=== PATIENT | female | born 1950 | race Caucasian/White ===

== ENCOUNTER 2020-08-28 19:50 | Inpatient (IN) | payer OTHER, SELFPAY ==
[~2020-08-28] VITALS: Ht 139.7 cm; Wt 44.5 kg
--- NOTE | 2020-08-28 19:54 | NUR ---
Placed in room 6 . Placed on clinical research monitor, blood pressure machine and pulse oximeter. To gown for exam. Side rails up. Report given to ZOË TOMLINSON.
[2020-08-28 19:55] VITALS: BP_SYST 160
--- NOTE | 2020-08-28 19:56 | NUR ---
DR. FRANCIS AT THE BEDSIDE EVALUATING PT
--- NOTE | 2020-08-28 20:05 | NUR ---
PT PRESENTS FROM HOME WITH C/O SUBSTERNAL CHEST PAIN RADIATING TO LEFT SIDE. REPORTS HX OF DM, KIDNEY DISEASE, LOWER PERIPHERAL NEUROPATHY. LIVES WITH SISTER. REPORTS PAIN STARTED DURING TREADMILL EXERCISE ABOUT 2 HOURS PRIOR TO ARRIVAL. PT REPORTS CURRENT PAIN LEVEL OF 6/10, AAOX4, V/S STABLE
[2020-08-28 20:27] LABS: BASOPHILS % (AUTO) 1.3 % (0.0-2.0); EOSINOPHILS # (AUTO) 0.1 K/uL (0.0-0.4); EOSINOPHILS % (AUTO) 3.7 % (0.0-4.0); HEMATOCRIT 24.1 % (36-48); HEMOGLOBIN 8.3 g/dL (12.0-16.0); LYMPHOCYTES # (AUTO) 1.5 K/uL (1.0-5.5); LYMPHOCYTES % (AUTO) 39.4 % (20.5-51.5); MEAN CORPUSCULAR HEMOGLOBIN 31 pg (27-31); MEAN CORPUSCULAR HGB CONC 35 % (32-36); MEAN CORPUSCULAR VOLUME 89 fL (79.0-98.0); MONOCYTES # (AUTO) 0.3 K/uL (0.0-1.0); MONOCYTES % (AUTO) 8.7 % (1.7-9.3); NEUTROPHILS # (AUTO) 1.8 K/uL (1.8-7.7); NEUTROPHILS % (AUTO) 46.9 % (40.0-70.0); PLATELET COUNT (AUTO) 147 K/uL (130-430); RED BLOOD CELL COUNT(AUTO) 2.72 MIL/uL (4.2-6.2); RED CELL DISTRIBUTION WIDTH 13.2 % (9.0-15.0); WHITE BLOOD COUNT (AUTO) 3.9 K/uL (4.8-10.8)
[2020-08-28 20:32] LABS: ANION GAP 9 (5-15); CALCIUM 8.5 mg/dL (8.4-11.0); CHLORIDE 93 mmol/L (98-107); CREATININE 1.45 mg/dL (0.55-1.30); GLUCOSE 146 mg/dL (70-99); POTASSIUM 3.5 mmol/L (3.5-5.1); SODIUM SERUM 125 mmol/L (136-145); UREA NITROGEN, BLOOD 38 mg/dL (8-21)
[2020-08-28 20:35] LABS: GFR AFRICAN AMERICAN 46 mL/min (>90)
[2020-08-28 20:51] LABS: ALANINE AMINOTRANSFERASE 28 U/L (12-78); ALBUMIN 3.2 g/dL (3.4-4.8); ASPARTATE AMINOTRANSFERASE 28 U/L (10-37); BILIRUBIN,DIRECT 0.1 mg/dL (0.0-0.3); LIPASE 171 U/L (73-393); TOTAL BILIRUBIN 0.3 mg/dL (0.0-1.0)
[2020-08-28] MEDS ORDERED: FAMOTIDINE 20 MG TABLET PO ONE (21:30)
[2020-08-28] MEDS ORDERED: MAG-AL HYDROX/SIMETH 30 ML UDC PO ONE (21:30)
[2020-08-28] MEDS ORDERED: IOHEXOL 350 mgI/mL, 150 ML INFUS..BTL IV ONE (21:49)
--- NOTE | 2020-08-28 22:07 | NUR ---
CALL FOR TELE BED- WILL CALL BACK
[2020-08-28] MEDS ORDERED: OMEP20CA15 PO (22:19)
[2020-08-28] MEDS ORDERED: LIP40 PO (22:19)
[2020-08-28] MEDS ORDERED: AMLO5TAB4 PO (22:19)
[2020-08-28] MEDS ORDERED: METO25TA6 PO (22:19)
[2020-08-28] MEDS ORDERED: LISI40TA4 PO (22:19)
--- NOTE | 2020-08-28 22:20 | NUR ---
SISTER DEVIN WAS NOTIFIED OF PT ADMISSION @
--- NOTE | 2020-08-28 22:28 | NUR ---
Patient transported to radiology via WC, accompanied by STAFF.
[2020-08-28] MEDS ORDERED: LORazepam 2 MG/ML VIAL IVP PRN (23:45)
[2020-08-28] MEDS ORDERED: ONDANSETRON HCL 4 MG/2 ML VIAL IVP PRN (23:45)
[2020-08-28] MEDS ORDERED: NALOXONE HCL 0.4 MG/ML AMP (NARCAN) IVP PRN ×2 (23:45)
[2020-08-28] MEDS ORDERED: HYDROcodone/ACETAMIN 5-325 MG TAB (NORCO/ VICODIN) PO PRN (23:45)
[2020-08-28] MEDS ORDERED: MORPHINE 2 MG/ML INJ. SYRINGE IVP PRN (23:45)
--- NOTE | 2020-08-28 23:45 | NUR ---
COVID SWAB DONE AND SENT TO LAB
--- NOTE | 2020-08-29 00:31 | NUR ---
Patient will be admitted to care of DR. LUONG. Admitted to TELE unit. Will go to room 116B. Belongings list completed. Complete and up to date summary report printed. SBAR report to be given at bedside with opportunity for questions.
--- NOTE | 2020-08-29 01:17 | NUR ---
ADMIT NOTE Received pt from ER to the floor with a diagnosis of chest pain. Admission process initiated. patient oriented to pain management, safety and call light-teach back done.
[2020-08-29 01:20] VITALS: BP_SYST 147
--- NOTE | 2020-08-29 01:20 | NUR ---
ADMISSION NOTE Received patient from ER via ana, received report from Nel TOMLINSON. Patient admitted with diagnosis of Chest Pain. Patient oriented to hospital routine, call light, toileting and safety-patient verbalized understanding. see admission nursing assessment.
[2020-08-29 01:27] VITALS: BP_SYST 157
[2020-08-29] MEDS ORDERED: FLU VACC QS2020-21(65UP)/PF 0.7 ML/SYRINGE I.M. PRN (01:45)
--- NOTE | 2020-08-29 02:35 | NUR ---
CONSULTATION PAGED REASON FOR CONSULTATION: chest pain WAS CONSULT CALLED? Y PERSON WHO WAS NOTIFIED: Yonatan CONSULTING PHYSICIAN: Reymundo White REQUESTING PHYSICIAN: Dr. Lai
--- NOTE | 2020-08-29 04:38 | NUR ---
Pt asleep voices no c/o c/p or discomfort. SR on monitor. NAD noted, will continue to monitor for changes.
[2020-08-29 06:45] LABS: BASOPHILS # (AUTO) 0.1 K/uL (0.0-0.2); BASOPHILS % (AUTO) 1.4 % (0.0-2.0); EOSINOPHILS # (AUTO) 0.1 K/uL (0.0-0.4); EOSINOPHILS % (AUTO) 3.2 % (0.0-4.0); HEMATOCRIT 25.4 % (36-48); HEMOGLOBIN 8.8 g/dL (12.0-16.0); LYMPHOCYTES # (AUTO) 1.1 K/uL (1.0-5.5); LYMPHOCYTES % (AUTO) 29.6 % (20.5-51.5); MEAN CORPUSCULAR HEMOGLOBIN 31 pg (27-31); MEAN CORPUSCULAR HGB CONC 35 % (32-36); MEAN CORPUSCULAR VOLUME 88 fL (79.0-98.0); MONOCYTES # (AUTO) 0.3 K/uL (0.0-1.0); MONOCYTES % (AUTO) 8.2 % (1.7-9.3); NEUTROPHILS # (AUTO) 2.2 K/uL (1.8-7.7); NEUTROPHILS % (AUTO) 57.6 % (40.0-70.0); PLATELET COUNT (AUTO) 156 K/uL (130-430); RED BLOOD CELL COUNT(AUTO) 2.88 MIL/uL (4.2-6.2); RED CELL DISTRIBUTION WIDTH 12.9 % (9.0-15.0); WHITE BLOOD COUNT (AUTO) 3.8 K/uL (4.8-10.8)
--- NOTE | 2020-08-29 07:04 | NUR ---
CLOSING NOTE: ON ROUNDS-PT ASLEEP, NAD NOTED. ON MONITOR SR /HR 61. WILL CONTINUE TO MONITOR UNTIL ENDORSED TO AM RN
--- NOTE | 2020-08-29 07:32 | NUR ---
AM ROUNDS: PATIENT ON THE BED. LEGALLY BLIND. INSTRUCTED TO USE CALL LIGHT FOR ASSISTANCE AND PUT BESIDE HER WITH IN REACH. IV SALINE LOCK X 2. BED LOCKED AT LOWEST POSITION. BED ALARM ON. NEEDS ATTENDED TO. NO ACUTE DISTRESS.
[2020-08-29 07:54] VITALS: BP_SYST 148
[2020-08-29] MEDS ORDERED: ASPIRIN 81 MG TAB.CHEW PO SCH (09:00)
[2020-08-29] MEDS ORDERED: ENOXAPARIN SODIUM 30 MG/0.3 ML SYRINGE SUBCUT SCH (09:00)
[2020-08-29 09:03] LABS: TOTAL IRON BIND. CAPACITY 193 ug/dL (250-450)
--- NOTE | 2020-08-29 09:10 | NUR ---
Flu shot: Flu shot given per protocol and patient consented at right deltoid im,with no problem.
[2020-08-29 09:40] LABS: CALCIUM 8.6 mg/dL (8.4-11.0); POTASSIUM 3.7 mmol/L (3.5-5.1)
[2020-08-29 09:41] LABS: ALBUMIN 3.1 g/dL (3.4-4.8); CREATININE 1.38 mg/dL (0.55-1.30); TOTAL BILIRUBIN 0.3 mg/dL (0.0-1.0)
--- NOTE | 2020-08-29 10:32 | NUR ---
RN ROUNDS: RESTING DURING ROUNDS. NO NEEDS THIS TIME. NO DISTRESS.
--- NOTE | 2020-08-29 11:00 | NUR ---
Cardio cleared: Patient seen by Dr Flores,results of ekg/echo and cleared patient home.
[2020-08-29 11:08] VITALS: BP_SYST 149
--- NOTE | 2020-08-29 12:15 | NUR ---
Lunch: Patient situated for lunch. Eaten lunch well. With no problem.
[2020-08-29] MEDS ORDERED: ASA81 PO (12:25)
[2020-08-29 13:02] VITALS: BP_SYST 141
[2020-08-29 14:24] VITALS: BP_SYST 141
--- NOTE | 2020-08-29 15:10 | NUR ---
D/C Patient Patient given medication reconciliation form and D/C instructions. Exit Care provided. Patient verbalized understanding. MD discussed with patient the results and treatment provided. Ambulatory with steady gait for discharge to home. Patient in stable condition, ID band removed. IV catheter removed, intact and dressing applied, no active bleeding. Patient educated on pain management.Spoke with patient's sister Vani and dc instructions given. All belongings sent with patient.
--- NOTE | 2020-09-08 11:23 | NUR ---
Discharge Follow Up Phone Call Phoned patient, , and spoke with patient's sister, Vani. Vani stated that patient had her follow up appointment with PCP, Dr Vasquez. They did not have the results of the CT scan with the renal mass. They were going to request patient's medical records, but patient's sister has not heard back. Phoned Dr Vasquez, , and left a voicemail message for his nurse to return the call with no patient identifying information, as instructed by the manifold operator. Jeanie returned the call and left a voicemail stating that I could leave patient information on the machine. Called back and left a voicemail with patient information and number to fax Medical Records for results of scan. . Addendum: 09/08/20 at 1344 by Yvette Hurtado LCSW Spoke with Jeanie again and Aimee in Medical Records. The records were sent 09/01/20, yet not received. Aimee will send again. Notified Jeanie. Notified patient's sister, Vani.
== END 2020-08-29 15:10 | disposition home or self-care (01) | DRG 206 ==
LOC: SED 19:50 → STU 23:16
PROVIDERS: ADMIT Internal Medicine Hospice and Palliative Medicine; ATTEND Internal Medicine Hospice and Palliative Medicine
DX: M94.0 Chondrocostal junction syndrome [Tietze] (principal); E87.1 Hypo-osmolality and hyponatremia; N18.4 Chronic kidney disease, stage 4 (severe); E44.1 Mild protein-calorie malnutrition; E78.5 Hyperlipidemia, unspecified; E11.319 Type 2 diabetes mellitus with unspecified diabetic retinopathy without macular edema; D63.8 Anemia in other chronic diseases classified elsewhere; Z20.828 Contact with and (suspected) exposure to other viral communicable diseases; I12.9 Hypertensive chronic kidney disease with stage 1 through stage 4 chronic kidney disease, or unspecified chronic kidney disease; E11.22 Type 2 diabetes mellitus with diabetic chronic kidney disease; Z98.891 History of uterine scar from previous surgery; Z82.49 Family history of ischemic heart disease and other diseases of the circulatory system
CPT/HCPCS: 36415; 71045; 71275; 80048; 80053; 80061; 80076; 83540-TC; 83550-TC; 83690-TC; 83880; 84484; 85025; 85379; 93005; 93306; 99285; G0378; J1650; Q9967

== ENCOUNTER 2022-08-11 06:30 | Day surgery (SDC) | payer OTHER ==
[~2022-08-11] VITALS: Ht 139.7 cm; Wt 43.5 kg
[~2022-08-11 06:30] MED LIST: AMLO5TAB4 PO; ASA81 PO; LIP40 PO; LISI40TA13 PO; METO25TA6 PO; OMEP20CA15 PO
[2022-08-11] MEDS ORDERED: SIMETHICONE 40 MG/0.6 ML ML ONE (06:41)
[2022-08-11] MEDS: MIDAZOLAM HCL 5 MG/5 ML VIAL ONE ×2 (07:47→07:49)
[2022-08-11] MEDS: fentaNYL CITRATE/PF 100 MCG/2 ML AMP ONE ×2 (07:47→07:49)
[2022-08-11 11:24] VITALS: BP_SYST 126
== END 2022-08-11 09:35 | disposition home or self-care (01) ==
LOC: SDS 06:30 → SMU 06:31 → SDS 09:35
PROVIDERS: ATTEND Internal Medicine Gastroenterology
DX: D64.9 Anemia, unspecified (principal); K29.50 Unspecified chronic gastritis without bleeding; K31.819 Angiodysplasia of stomach and duodenum without bleeding; K31.89 Other diseases of stomach and duodenum; Z85.528 Personal history of other malignant neoplasm of kidney; Z79.899 Other long term (current) drug therapy; Z20.822 Contact with and (suspected) exposure to COVID-19
CPT/HCPCS: 36415; 43239; 88305; 88312; 88313; U0003; G0378; J2250; J3010

== ENCOUNTER 2022-11-06 13:10 | Emergency (ER) | payer OTHER ==
[~2022-11-06] VITALS: Ht 139.7 cm; Wt 43.1 kg
[2022-11-06 15:20] VITALS: BP_SYST 150
--- NOTE | 2022-11-06 15:20 | NUR ---
PATIENT BROUGHT IN FROM HOME ACCOMPANIED BY SISTER WHO IS PIERCING SPECIALIST COMPLAINING OF ABDOMINAL PAIN RADIATING TO RIGHT FLANK WITH NAUSEA SINCE THIS MORNING. PATIENT HAS HISTORY OF ESRD, DM, HTN, HLD. DIALYSIS M/W/F HAS AV SHUNT ON LEFT ARM. PAIN 6/10
--- NOTE | 2022-11-06 16:49 | NUR ---
ER IN TRIAGE examining patient.
[2022-11-06 17:38] LABS: BILIRUBIN,URINE NEGATIVE (NEGATIVE); COLOR,URINE YELLOW (YELLOW); GLUCOSE,URINE 1+ (NEGATIVE); KETONES,URINE NEGATIVE (NEGATIVE); LEUKOCYTE ESTERASE ,URINE NEGATIVE (NEGATIVE); NITRITE, URINE NEGATIVE (NEGATIVE); PH,URINE 5.5 (5.0-8.0); PROTEIN URINE TRACE (NEGATIVE); UROBILINOGEN,URINE 0.2 (0.2-1.0)
[2022-11-06 17:39] LABS: EOSINOPHILS # (AUTO) 0.2 K/uL (0.0-0.4); EOSINOPHILS % (AUTO) 3.9 % (0.0-4.0); HEMATOCRIT 30.9 % (36-48); HEMOGLOBIN 10.5 g/dL (12.0-16.0); LYMPHOCYTES # (AUTO) 1.3 K/uL (1.0-5.5); LYMPHOCYTES % (AUTO) 32.1 % (20.5-51.5); MEAN CORPUSCULAR HEMOGLOBIN 33 pg (27-31); MEAN CORPUSCULAR HGB CONC 34 % (32-36); MEAN CORPUSCULAR VOLUME 96 fL (79.0-98.0); MONOCYTES # (AUTO) 0.4 K/uL (0.0-1.0); MONOCYTES % (AUTO) 9.9 % (1.7-9.3); NEUTROPHILS # (AUTO) 2.2 K/uL (1.8-7.7); NEUTROPHILS % (AUTO) 53.1 % (40.0-70.0); PLATELET COUNT (AUTO) 116 K/uL (130-430); RED BLOOD CELL COUNT(AUTO) 3.21 MIL/uL (4.2-6.2); RED CELL DISTRIBUTION WIDTH 13.4 % (9.0-15.0); WHITE BLOOD COUNT (AUTO) 4.2 K/uL (4.8-10.8)
[2022-11-06 17:51] LABS: BLOOD, URINE TRACE (NEGATIVE); CLARITY/URINE SLIGHTLY CLOUDY (CLEAR)
[2022-11-06 18:03] LABS: ALANINE AMINOTRANSFERASE 19 U/L (12-78); ANION GAP 6 (5-15); ASPARTATE AMINOTRANSFERASE 24 U/L (10-37); CHLORIDE 93 mmol/L (98-107); CREATININE 3.31 mg/dL (0.55-1.30); GFR AFRICAN AMERICAN 18 mL/min (>90); GLUCOSE 174 mg/dL (70-99); TOTAL BILIRUBIN 0.5 mg/dL (0.0-1.0); UREA NITROGEN, BLOOD 70 mg/dL (8-21)
[2022-11-06 18:04] LABS: ACETONE, SERUM NEGATIVE (NEGATIVE); ALBUMIN 3.3 g/dL (3.4-4.8); LIPASE 178 U/L (73-393)
[2022-11-06 18:38] LABS: BACTERIA,URINE RARE /HPF (None Seen); WBC,URINE NONE SEEN /HPF (0-3)
[2022-11-06] MEDS ORDERED: HYDR-3917 PO (18:50)
[2022-11-06] MEDS ORDERED: ACET-2634 PO (18:50)
[2022-11-06 19:40] VITALS: BP_SYST 132
--- NOTE | 2022-11-06 19:40 | NUR ---
Patient given written and verbal discharge instructions and verbalizes understanding. ER MD discussed with patient the results and treatment provided. Patient in stable condition. ID arm band removed. Rx of TYLENOL AND NORCO given. Patient educated on pain management and to follow up with PMD. Pain Scale 0/10 Opportunity for questions provided and answered. Medication side effect fact sheet provided.
== END 2022-11-06 19:40 | disposition home or self-care (01) ==
LOC: SED 13:10
DX: R10.11 Right upper quadrant pain (principal); R11.0 Nausea; Z79.899 Other long term (current) drug therapy
CPT/HCPCS: 36415; 76376; 80053; 81000; 82009; 83690; 85025; 99284

== ENCOUNTER 2023-02-28 06:05 | Day surgery (SDC) | payer OTHER ==
[~2023-02-28] VITALS: Ht 139.7 cm; Wt 42.2 kg
[~2023-02-28 06:05] MED LIST changes: +ACET-2634 PO; +HYDR-3917 PO
[2023-02-28] MEDS ORDERED: fentaNYL CITRATE/PF 100 MCG/2 ML AMP ONE (07:10)
[2023-02-28] MEDS ORDERED: MIDAZOLAM HCL 5 MG/5 ML VIAL ONE (07:11)
[2023-02-28 10:56] VITALS: BP_SYST 129
== END 2023-02-28 10:45 | disposition home or self-care (01) ==
LOC: SDS 06:05 → SMU 06:05 → SDS 10:45
PROVIDERS: ATTEND Internal Medicine Gastroenterology
DX: K31.819 Angiodysplasia of stomach and duodenum without bleeding (principal); N18.6 End stage renal disease; D63.1 Anemia in chronic kidney disease; Z99.2 Dependence on renal dialysis; K21.9 Gastro-esophageal reflux disease without esophagitis; Z20.822 Contact with and (suspected) exposure to COVID-19; Z79.899 Other long term (current) drug therapy
CPT/HCPCS: 43255; 82962; 36415; 99152; 87426; G0378; J2250; J3010